=== PATIENT | male | born 1985 | race Caucasian/White ===

== ENCOUNTER 2016-09-08 08:09 | Emergency (ER) | payer MEDICAID, OTHER, SELFPAY ==
[~2016-09-08] VITALS: Ht 162.6 cm; Wt 83.0 kg
[2016-09-08 08:10] VITALS: BP 142/82
== END 2016-09-08 09:48 | disposition home or self-care (01) ==
LOC: ED 09:42
DX: S86.812A Strain of other muscle(s) and tendon(s) at lower leg level, left leg, initial encounter (principal); X58.XXXA Exposure to other specified factors, initial encounter; Y93.89 Activity, other specified; Y92.328 Other athletic field as the place of occurrence of the external cause; Y99.9 Unspecified external cause status
CPT/HCPCS: 29515; 99283